=== PATIENT | male | born 1980 | race Caucasian/White ===

== ENCOUNTER 2022-09-21 19:00 | Inpatient (IN) | payer MEDICAID ==
[~2022-09-21] VITALS: Ht 175.3 cm; Wt 71.2 kg
[2022-09-21 23:54] LABS: HEMATOCRIT. 38.8 % (42.0-52.0); HEMOGLOBIN. 12.9 g/dL (14.0-18.0); MEAN CORPUSCULAR HEMOGLOBIN 29.9 pg (28.0-32.0); MEAN CORPUSCULAR VOLUME 90.1 fL (80.0-94.0); MEAN PLATELET VOLUME 7.8 fl (7.4-10.4); PLATELET 298 x1000/uL (130-400); RED BLOOD CELL COUNT 4.31 mill/uL (4.7-6.1); RED CELL DISTRIBUTION WIDTH 12.8 % (11.6-14.6)
[2022-09-22 00:02] LABS: INR 1.1; PROTHROMBIN TIME 11.5 sec (9.6-11.0)
[2022-09-22 00:29] LABS: PLATELET ESTIMATE NORMAL
[2022-09-22 01:18] LABS: CHLORIDE 100 mEq/L (98-107); ETHANOL BLOOD < 10 mg/dL
[2022-09-22 04:48] LABS: CLARITY URINE CLEAR (CLEAR); COLOR URINE YELLOW (YELLOW); KETONES URINE NEGATIVE (NEGATIVE); LEUKOCYTE ESTERASE URINE NEGATIVE (NEGATIVE); NITRITE URINE NEGATIVE (NEGATIVE); OCCULT BLOOD URINE NEGATIVE (NEGATIVE); PROTEIN URINE 2+ (NEGATIVE); SPECIFIC GRAVITY URINE 1.013 (1.005-1.030)
[2022-09-22 05:10] LABS: *AMPHETAMINES SCREEN URINE PRESUMTIVE POSITIVE (NEGATIVE); *BARBITURATES SCREEN URINE NEGATIVE (NEGATIVE); *BENZODIAZEPINES SCREEN URINE NEGATIVE (NEGATIVE); *COCAINE SCREEN URINE NEGATIVE (NEGATIVE); CANNABINOID URINE SCREEN NEGATIVE (NEGATIVE); METHADONE URINE SCREEN NEGATIVE (NEGATIVE); OPIATES URINE SCREEN NEGATIVE (NEGATIVE); PHENCYCLIDINE URINE SCREEN PRESUMTIVE POSITIVE (NEGATIVE)
[2022-09-22] MEDS ORDERED: ACETAMINOPHEN 325MG TABLET PO STA (05:28)
[2022-09-22] MEDS ORDERED: PIPERACILLIN/TAZ 3.375G PREMIX 50 ML IV ONE (05:30)
[2022-09-22] MEDS ORDERED: VANCOMYCIN 1G PREMIX 200 ML IV ONE (05:30)
[2022-09-22] MEDS ORDERED: SODIUM CHLORIDE 0.9% 1,000 ML IV ONE (05:30)
[2022-09-22] MEDS ORDERED: SODIUM CHLORIDE 0.9% 1000ML BAG (SEPSIS BOLUS) IV ONE (05:30)
[2022-09-22] MEDS ORDERED: ONDANSETRON HCL 4MG/2ML INJ IV PRN (08:00)
[2022-09-22] MEDS ORDERED: ACETAMINOPHEN 325MG TABLET PO PRN ×2 (08:00)
[2022-09-22] MEDS ORDERED: IPRATROPIUM/ALBUTEROL 0.5-3(2.5)MG/3ML NEB HHN PRN (08:00)
[2022-09-22] MEDS ORDERED: CEFTRIAXONE 1 G PREMIX 50 ML IV SCH (08:00)
[2022-09-22] MEDS ORDERED: HYDROCODONE/ACETAMINOPHEN 5/325MG TABLET PO PRN (08:00)
[2022-09-22] MEDS ORDERED: MAGNESIUM/ALUMINUM HYDROXIDE/SIMETHICONE 30ML UDC PO PRN (08:00)
[2022-09-22] MEDS ORDERED: DOCUSATE SODIUM 100MG CAPSULE PO PRN (08:00)
[2022-09-22] MEDS ORDERED: CLONIDINE 0.1MG TABLET PO PRN (08:00)
[2022-09-22] MEDS ORDERED: GUAIFENESIN 200MG/10ML SUGAR FREE UDC PO PRN (08:00)
[2022-09-22] MEDS ORDERED: POTASSIUM CHLORIDE 20MEQ TABLET SR PO NR (08:15)
[2022-09-22] MEDS ORDERED: NALOXONE HCL 0.4MG/ML VIAL IV PRN (08:15)
[2022-09-22] MEDS: ENOXAPARIN 40MG/0.4ML SYR SUBCUT SCH (08:30)
[2022-09-22] MEDS: AZITHROMYCIN 500 MG in DEXT 5% WATER 250 ML IV SCH (09:00)
[2022-09-22] MEDS: DEXT 5%/0.45% NACL 1000ML 1,000 ML IV SCH ×2 (10:43→23:35)
[2022-09-22] MEDS: CEFTRIAXONE 1,000 MG in DEXTROSE 5% WATER 50 ML IV SCH (15:01)
[2022-09-22 17:30] VITALS: BP 135/60
[2022-09-22] MEDS ORDERED: ALBUTEROL (0.083%) 2.5MG/3ML NEB HHN PRN (18:15)
[2022-09-22] MEDS ORDERED: IPRATROPIUM BROMIDE (0.02%) 0.5MG/2.5ML NEB HHN PRN (18:15)
[2022-09-22 20:00] VITALS: BP 110/60
[2022-09-22] MEDS: FAMOTIDINE 20MG/2ML VIAL IV SCH (21:11)
[2022-09-22 23:27] LABS: HEPATITIS B SURFACE ANTIGEN NEGATIVE
[2022-09-23] VITALS: BP 113/60
[2022-09-23 04:00] VITALS: BP 115/68
[2022-09-23 07:07] LABS: BASOPHILS % 0.2 % (0.0-2.0); EOSINOPHILS % 0.3 % (0.0-5.0); HEMATOCRIT. 36.5 % (42.0-52.0); HEMOGLOBIN. 12.1 g/dL (14.0-18.0); LYMPHOCYTES % 10.1 % (20.0-50.0); MEAN CORPUSCULAR VOLUME 90.4 fL (80.0-94.0); MEAN PLATELET VOLUME 8.3 fl (7.4-10.4); MONOCYTES % 10.5 % (2.0-8.0); NEUTROPHILS % 78.9 % (40.0-76.0); PLATELET 340 x1000/uL (130-400); RED BLOOD CELL COUNT 4.04 mill/uL (4.7-6.1); RED CELL DISTRIBUTION WIDTH 13.1 % (11.6-14.6)
[2022-09-23 08:00] VITALS: BP 93/67
[2022-09-23 08:44] LABS: CHLORIDE 108 mEq/L (98-107)
[2022-09-23] MEDS: FAMOTIDINE 20MG/2ML VIAL IV SCH ×2 (08:57→22:21)
[2022-09-23] MEDS: AZITHROMYCIN 500 MG in DEXT 5% WATER 250 ML IV SCH (08:57)
[2022-09-23] MEDS: ENOXAPARIN 40MG/0.4ML SYR SUBCUT SCH (08:58)
[2022-09-23 09:03] LABS: HDL CHOLESTEROL 26 mg/dL (40-59); LDL CHOLESTEROL 43 mg/dL (5-100); T4 FREE 1.06 ng/dL (0.76-1.46)
[2022-09-23 12:00] VITALS: BP 119/58
[2022-09-23] MEDS ORDERED: METHYLPREDNISOLONE SOD SUCC 125 MG/2 ML VIAL IV NR (12:45)
[2022-09-23] MEDS ORDERED: ALBUTEROL (0.083%) 2.5MG/3ML NEB HHN SCH ×2 (12:45)
[2022-09-23] MEDS: CEFTRIAXONE 1,000 MG in DEXTROSE 5% WATER 50 ML IV SCH (13:16)
[2022-09-23] MEDS: DEXT 5%/0.45% NACL 1000ML 1,000 ML IV SCH (13:16)
[2022-09-23 16:00] VITALS: BP 95/60
[2022-09-23 20:00] VITALS: BP 114/70
[2022-09-24] VITALS: BP 115/56
[2022-09-24] MEDS: DEXT 5%/0.45% NACL 1000ML 1,000 ML IV SCH (02:25)
[2022-09-24 04:00] VITALS: BP 111/52
[2022-09-24 08:00] VITALS: BP 120/61
[2022-09-24] MEDS: ENOXAPARIN 40MG/0.4ML SYR SUBCUT SCH ×2 (08:30→08:42)
[2022-09-24] MEDS: AZITHROMYCIN 500 MG in DEXT 5% WATER 250 ML IV SCH (08:42)
[2022-09-24] MEDS ORDERED: FAMOTIDINE 20MG TABLET PO SCH (09:00)
[2022-09-24] MEDS ORDERED: AZIT500T8 MT (09:13)
[2022-09-24] MEDS ORDERED: AMOX1TAB15 MT (09:13)
[2022-09-24] MEDS ORDERED: P20 MT (09:13)
[2022-09-24] MEDS ORDERED: FAMO20TA8 PO (09:13)
[2022-09-24] MEDS ORDERED: ALBU90AE INH (09:13)
[2022-09-24 09:53] VITALS: BP 120/61
[2022-09-24 10:33] VITALS: BP 120/61
[2022-09-25] MEDS ORDERED: PREDNISONE 20MG TABLET PO SCH (09:00)
== END 2022-09-24 11:35 | disposition home or self-care (01) | DRG 720 ==
LOC: ER 19:00 → MICUSO 09-22 06:30 → EDBEDREQ 09-22 06:34 → EDBEDREQTM 09-22 06:34 → SUPCPDRO 09-22 07:31 → 7EST 09-22 18:06
PROVIDERS: ADMIT Internal Medicine; ATTEND Internal Medicine
DX: A41.9 Sepsis, unspecified organism (principal); J18.9 Pneumonia, unspecified organism; E44.1 Mild protein-calorie malnutrition; E87.1 Hypo-osmolality and hyponatremia; J45.901 Unspecified asthma with (acute) exacerbation; E87.6 Hypokalemia; Z68.23 Body mass index [BMI] 23.0-23.9, adult; E11.9 Type 2 diabetes mellitus without complications; F19.90 Other psychoactive substance use, unspecified, uncomplicated; F45.21 Hypochondriasis; F17.210 Nicotine dependence, cigarettes, uncomplicated; Z20.822 Contact with and (suspected) exposure to COVID-19; Z59.00 Homelessness unspecified
CPT/HCPCS: 36415; 71045; 74176; 80053; 80061; 80305; 80320; 81003; 83036; 83605; 84145; 84439; 84443; 84481; 84484; 85025; 86803; 87340; 87426; 93306; 99285; C1893; J0456; J0696; J1650; J2543; J2930; J3370; J3490; J7030; J7060; G0480

== ENCOUNTER 2023-09-21 06:29 | Emergency (ER) | payer MEDICAID, OTHER ==
[~2023-09-21] VITALS: Ht 170.2 cm; Wt 73.0 kg
[~2023-09-21 06:29] MED LIST: ALBU90AE INH; AMOX1TAB15 MT; AZIT500T8 MT; FAMO20TA8 PO; P20 MT
[2023-09-21 06:35] VITALS: O2SAT 98
[2023-09-21] MEDS: ACETAMINOPHEN 325MG TABLET PO ONE (07:10)
[2023-09-21] MEDS ORDERED: IBUP-2028 PO (08:37)
[2023-09-21] MEDS ORDERED: OXYC-100 PO (08:37)
[2023-09-21 08:56] VITALS: BP 124/76; PULSE 8; RESP 17; TEMP 98.2
== END 2023-09-21 09:00 | disposition home or self-care (01) ==
LOC: ER 06:29
DX: S22.31XA Fracture of one rib, right side, initial encounter for closed fracture (principal); J45.909 Unspecified asthma, uncomplicated; F15.90 Other stimulant use, unspecified, uncomplicated; W18.39XA Other fall on same level, initial encounter; Y93.89 Activity, other specified; Y92.89 Other specified places as the place of occurrence of the external cause; Y99.8 Other external cause status
CPT/HCPCS: 71101; 99283; Z7610